=== PATIENT | male | born 1955 | race Caucasian/White ===

== ENCOUNTER 2022-03-07 03:17 | Inpatient (IN) ==
[2022-03-07] MEDS ORDERED: Ondansetron 4 MG/2 ML VIAL IVP PRN (06:42)
[2022-03-07] MEDS ORDERED: Acetaminophen 325 MG TABLET PO PRN (06:42)
[2022-03-07] MEDS ORDERED: Naloxone 0.4 MG/ML INJ IVP PRN ×2 (06:42→07:03)
[2022-03-07] MEDS ORDERED: Perflutren Lipid Microsphere 1.3 ML in 0.9 % Sodium Chloride 8.7 ML IVP PRN (06:45)
[2022-03-07] MEDS ORDERED: *HR* Heparin 5,000 UNIT/ML VIAL IVP PRN ×2 (07:13)
[2022-03-07] MEDS ORDERED: *HR* Heparin 5,000 UNIT/ML VIAL IVP ONE (07:13)
[2022-03-07] MEDS ORDERED: Nitroglycerin 0.4 MG TAB.SUBL SL PRN (07:14)
[2022-03-07 08:21] LABS: Basophils # 0.1 K/mcL (0.0-0.2); Basophils % 1.1 %; Eosinophils # 0.5 K/mcL (0.0-0.6); Eosinophils % 5.5 %; Hematocrit 38.7 % (37.5-50.1); Hemoglobin 12.6 g/dL (12.9-16.9); Immature Granulocytes % 0.1 % (0-4); Lymphocytes # 1.4 K/mcL (0.6-4.6); Lymphocytes % 16.7 %; Mean Corpuscular HGB Conc 32.6 g/dL (31.6-35.5); Mean Corpuscular Hemoglobin 29.9 pg (28.0-33.3); Mean Corpuscular Volume 91.7 fL (83.0-100.0); Mean Platelet Volume 11.2 fL (9.4-12.4); Monocytes # 0.7 K/mcL (0.0-1.3); Monocytes % 8.4 %; Neutrophils # 5.7 K/mcL (1.6-8.9); Platelet Count 211 K/mcL (140-400); Red Blood Count 4.22 M/mcL (4.19-5.50); Red Cell Distribution Width 12.8 % (11.5-14.5); Segmented Neutrophils % 68.2 %; White Blood Count 8.4 K/mcL (4.3-11.1)
[2022-03-07] MEDS: Heparin 25,000UNIT/250ML 1/2NS 25,000 UNIT/250 ML IV.SOLN IVC SCH (08:23)
[2022-03-07] MEDS ORDERED: Dextrose 4 GM Chewable Tablets PO PRN ×2 (08:29)
[2022-03-07] MEDS ORDERED: *HR* Dextrose 50 % in Water (Syg) 50 ML SYRINGE IVP PRN (08:29)
[2022-03-07] MEDS ORDERED: D5% in Water 1,000 ML IVC PRN (08:29)
[2022-03-07 08:32] LABS: Heparin anti-factor XA UFH 0.07 IU/mL (0.30-0.70); INR 1.1; Prothrombin Time 12.2 Seconds (9.4-12.1)
[2022-03-07 08:35] LABS: Activated Partial Thrombo Time 31.3 Seconds (26.0-36.0)
[2022-03-07 08:44] LABS: Chol/HDL Ratio 2.3 (0-4.9); Magnesium 1.6 mg/dL (1.6-2.6); Phosphorous 3.2 mg/dL (2.7-4.5)
[2022-03-07 08:45] LABS: Alanine Aminotransferase 17 Units/L (7-52); Albumin 4.3 g/dL (3.5-5.7); Albumin/Globulin Ratio 1.6 (1.1-2.2); Alkaline Phosphatase 47 Units/L (34-104); Aspartate Amino Transferase 16 Units/L (13-39); BUN/Creatinine Ratio 19 (6-26); Bilirubin,Direct 0.1 mg/dL (0.0-0.2); Bilirubin,Indirect 0.4 mg/dL (0.0-1.0); Bilirubin,Total 0.5 mg/dL (0.3-1.0); Blood Urea Nitrogen 14 mg/dL (8-23); Calcium 9.8 mg/dL (8.6-10.3); Carbon Dioxide 29 mEq/L (23-29); Chloride 104 mEq/L (98-107); Globulin 2.7 g/dL (2.4-3.5); Glucose 167 mg/dL (70-105); Osmolality,Calculated 292 (280-300); Potassium 4.3 mEq/L (3.5-5.1); Sodium 139 mEq/L (136-145); eGFR For African Americans > 60 (> 60); eGFR For Non-African Americans > 60 (> 60)
[2022-03-07 08:53] LABS: Troponin I 0.82 ng/mL (< 0.04)
[2022-03-07 08:57] LABS: Thyroid Stimulating Hormone 2.375 mcIU/mL (0.340-5.600)
[2022-03-07] MEDS: Aspirin Enteric Coated 81 MG Tablet PO SCH (10:09)
[2022-03-07] MEDS: Insulin LISPRO 300 UNITS/3 ML VIAL SUBQ SCH ×3 (12:33→20:18)
[2022-03-07 21:17] LABS: Bilirubin,Urine Negative (Negative); Blood,Urine Negative (Negative); Clarity,Urine Clear (Clear); Color,Urine Colorless (Yellow); Glucose,Urine (UA) Normal (Normal); Ketones,Urine Negative (Negative); Leukocyte Esterase,Urine Negative (Negative); Nitrite,Urine Negative (Negative); PH,Urine 6.5 pH Units (5.0-8.0); Protein,Urine Negative (Neg-Trace); Specific Gravity,Urine 1.012 (1.010-1.025); Urobilinogen,Urine Normal (Normal)
[2022-03-08 03:51] LABS: Basophils # 0.1 K/mcL (0.0-0.2); Basophils % 1.3 %; Eosinophils # 0.7 K/mcL (0.0-0.6); Eosinophils % 7.8 %; Hematocrit 40.4 % (37.5-50.1); Hemoglobin 13.3 g/dL (12.9-16.9); Immature Granulocytes % 0.2 % (0-4); Lymphocytes # 2.4 K/mcL (0.6-4.6); Lymphocytes % 25.8 %; Mean Corpuscular HGB Conc 32.9 g/dL (31.6-35.5); Mean Corpuscular Hemoglobin 30.3 pg (28.0-33.3); Mean Platelet Volume 11.2 fL (9.4-12.4); Monocytes # 0.7 K/mcL (0.0-1.3); Monocytes % 8.1 %; Neutrophils # 5.2 K/mcL (1.6-8.9); Platelet Count 224 K/mcL (140-400); Red Blood Count 4.39 M/mcL (4.19-5.50); Red Cell Distribution Width 12.6 % (11.5-14.5); Segmented Neutrophils % 56.8 %; White Blood Count 9.2 K/mcL (4.3-11.1)
[2022-03-08 04:10] LABS: BUN/Creatinine Ratio 21 (6-26); Blood Urea Nitrogen 16 mg/dL (8-23); Calcium 9.6 mg/dL (8.6-10.3); Carbon Dioxide 28 mEq/L (23-29); Chloride 102 mEq/L (98-107); Estimated Average Glucose 166 mg/dl; Glucose 139 mg/dL (70-105); Hemoglobin A1C 7.4 %; Magnesium 1.7 mg/dL (1.6-2.6); Osmolality,Calculated 291 (280-300); Potassium 4.1 mEq/L (3.5-5.1); Sodium 139 mEq/L (136-145); eGFR For African Americans > 60 (> 60); eGFR For Non-African Americans > 60 (> 60)
[2022-03-08] MEDS: Heparin 25,000UNIT/250ML 1/2NS 25,000 UNIT/250 ML IV.SOLN IVC SCH (06:58)
[2022-03-08] MEDS: Aspirin Enteric Coated 81 MG Tablet PO SCH (08:06)
[2022-03-08] MEDS: Insulin LISPRO 300 UNITS/3 ML VIAL SUBQ SCH ×4 (08:07→20:46)
[2022-03-08] MEDS ORDERED: *HR* FentaNYL (PF) 100 MCG/2 ML VIAL ONE (09:27)
[2022-03-08] MEDS ORDERED: *HR* Heparin 10,000 UNIT/10 ML VIAL ONE (09:28)
[2022-03-08] MEDS ORDERED: 0.9 % Sodium Chloride 2,000 ML ONE (09:28)
[2022-03-08] MEDS ORDERED: Heparin 1,000 UNITS/500 mL 500 ML ONE (09:28)
[2022-03-08] MEDS ORDERED: Nitroglycerin 1,000 MCG/5 ML VIAL IV ONE (09:28)
[2022-03-08] MEDS ORDERED: *HR* Midazolam HCl 2 MG/2 ML VIAL ONE (09:28)
[2022-03-08] MEDS ORDERED: ISOVUE-370 200 ML INFUS..BTL ONE (09:28)
[2022-03-08] MEDS ORDERED: Tirofiban 12.5 MG/250ML 12.5 MG/250 ML BAG ONE (10:12)
[2022-03-08] MEDS ORDERED: *HR* Ticagrelor 90 MG TABLET ONE (10:24)
[2022-03-08] MEDS ORDERED: Tirofiban 12.5 MG/250ML 12.5 MG/250 ML BAG IVC SCH (11:00)
[2022-03-08 16:15] LABS: Hematocrit 40.2 % (37.5-50.1); Hemoglobin 13.1 g/dL (12.9-16.9)
[2022-03-08] MEDS: *HR* Ticagrelor 90 MG TABLET PO SCH (20:38)
[2022-03-09 05:29] LABS: Hematocrit 41.2 % (37.5-50.1); Hemoglobin 13.6 g/dL (12.9-16.9); Mean Corpuscular Hemoglobin 30.4 pg (28.0-33.3); Mean Platelet Volume 10.9 fL (9.4-12.4); Platelet Count 217 K/mcL (140-400); Red Blood Count 4.48 M/mcL (4.19-5.50); Red Cell Distribution Width 12.5 % (11.5-14.5); White Blood Count 8.4 K/mcL (4.3-11.1)
[2022-03-09 05:47] LABS: BUN/Creatinine Ratio 18 (6-26); Blood Urea Nitrogen 16 mg/dL (8-23); Calcium 9.7 mg/dL (8.6-10.3); Carbon Dioxide 30 mEq/L (23-29); Chloride 100 mEq/L (98-107); Glucose 152 mg/dL (70-105); Osmolality,Calculated 290 (280-300); Potassium 4.3 mEq/L (3.5-5.1); Sodium 138 mEq/L (136-145); eGFR For African Americans > 60 (> 60); eGFR For Non-African Americans > 60 (> 60)
[2022-03-09] MEDS ORDERED: *HR* Enoxaparin 40 MG/0.4 ML SYRINGE SQ SCH (06:00)
[2022-03-09 08:19] VITALS: BP 135/74; PULSE 99; TEMP 97.8; O2SAT 93
[2022-03-09] MEDS: *HR* Ticagrelor 90 MG TABLET PO SCH (08:49)
[2022-03-09] MEDS: Aspirin Enteric Coated 81 MG Tablet PO SCH (08:49)
[2022-03-09] MEDS: Insulin LISPRO 300 UNITS/3 ML VIAL SUBQ SCH (09:12)
== END 2022-03-09 11:14 | disposition home or self-care (01) | DRG 247 ==
LOC: 3BNU → SUATTDRO 06:00
PROVIDERS: ADMIT Pharmacist; ATTEND Nurse Practitioner